=== PATIENT | female | born 1965 | race Two or more races ===

== ENCOUNTER → 2020-04-08 | Outpatient (CLI) | payer OTHER | END | disposition home or self-care (01) | LOC: CFH 14:40 | PROVIDERS: ATTEND Nurse Practitioner Family | DX: Z12.31 Encounter for screening mammogram for malignant neoplasm of breast (principal) | CPT/HCPCS: 77067 ==

== ENCOUNTER → 2020-05-10 | Outpatient (CLI) | payer OTHER | END | disposition home or self-care (01) | LOC: CFH 14:30 | PROVIDERS: ATTEND Nurse Practitioner Family | DX: N64.89 Other specified disorders of breast (principal) | CPT/HCPCS: 76642; 77065; G0279 ==

== ENCOUNTER → 2020-07-02 | Outpatient (CLI) | payer OTHER | END | disposition home or self-care (01) | LOC: RAD 15:21 | PROVIDERS: ATTEND Obstetrics & Gynecology | DX: D25.2 Subserosal leiomyoma of uterus (principal); N95.9 Unspecified menopausal and perimenopausal disorder; N93.0 Postcoital and contact bleeding | CPT/HCPCS: 76830 ==